=== PATIENT | female | born 1995 | race Caucasian/White ===

== ENCOUNTER 2016-10-15 01:02 | Emergency (ER) | payer BC ==
--- NOTE | 2016-10-15 02:46 | ED ---
Nagi Baldwin Rebecca, scribed for Dakota Du MD on 10/15/16 at 0220 . Abdominal Pain/Female - HPI Summary HPI Summary: Pt is a 20 y/o F who presents to ED c/o R flank pain. Pain began 3 days ago, worsening yesterday throughout the day. Pt then began drinking more water which did not change sx. Pain was initially mild and is currently moderate, ranked 7/ 10. Sx aggravated and alleviated by nothing. Additionally c/o nausea and dizziness beginning at 2230. Denies fever, dysuria and vomiting. LNMP last week. Prior "minimal kidney aching" before but not as severely as current sx. - History of Current Complaint Chief Complaint: EDFlankPain Stated Complaint: LOWER BACK PAIN Time Seen by Provider: 10/15/16 02:12 Hx Obtained From: Patient Onset/Duration: Gradual Onset, Lasting Days - 3 days, Still Present, Worse Since - yesterday Severity Initially: Mild Severity Currently: Moderate Pain Intensity: 7 Pain Scale Used: 0-10 Numeric Location: Flank - R Aggravating Factor(s): Nothing Alleviating Factor(s): Nothing Associated Signs and Symptoms: Positive: Dizzy, Nausea. Negative: Fever, Urinary Symptoms, Vomiting Allergies/Adverse Reactions: Allergies Allergy/AdvReac Type Severity Reaction Status Date / Time No Known Allergies Allergy Verified 10/15/16 01:06 PMH/Surg Hx/FS Hx/Imm Hx Endocrine/Hematology History: Denies: Hx Diabetes Cardiovascular History: Denies: Hx Hypertension Infectious Disease History: No Infectious Disease History: Denies: Traveled Outside the [place] in Last 30 Days - Family History Known Family History: Positive: Hypertension - grandmother - Social History Alcohol Use: Occasionally Substance Use Type: Reports: None Smoking Status (MU): Never Smoked Tobacco Review of Systems Negative: Fever Positive: Abdominal Pain - R flank pain, Nausea. Negative: Vomiting Negative: dysuria Neurological: Other - Dizziness All Other Systems Reviewed And Are Negative: Yes Physical Exam Triage Information Reviewed: Yes Vital Signs On Initial Exam: Initial Vitals Temp Pulse Resp BP Pulse Ox 97.4 F 113 20 141/93 99 10/15/16 01:07 10/15/16 01:07 10/15/16 01:07 10/15/16 01:07 10/15/16 01:07 Vital Signs Reviewed: Yes Appearance: Positive: Well-Appearing, No Pain Distress Skin: Positive: Warm Head/Face: Positive: Normal Head/Face Inspection Eyes: Positive: RENETTA ENT: Positive: Hearing grossly normal Neck: Positive: Supple Respiratory/Lung Sounds: Positive: Clear to Auscultation, Breath Sounds Present Cardiovascular: Positive: RRR Abdomen Description: Positive: Nontender, Soft. Negative: CVA Tenderness (R), CVA Tenderness (L) Bowel Sounds: Positive: Present Musculoskeletal: Positive: Strength/ROM Intact Neurological: Positive: Alert, Oriented to Person Place, Time Psychiatric: Positive: Affect/Mood Appropriate - [place] Coma Scale Coma Scale Total: 15 Diagnostics - Vital Signs Vital Signs Temp Pulse Resp BP Pulse Ox 10/15/16 01:07 97.4 F 113 20 141/93 99 - Laboratory Result Diagrams: 10/15/16 02:36 10/15/16 02:36 Lab Statement: Any lab studies that have been ordered have been reviewed, and results considered in the medical decision making process. Re-Evaluation - Re-Evaluation First Eval Change: Improved Abdominal Pain Fem Course/Dx - Course Course Of Treatment: Pt is a 20 y/o F who presents to ED c/o R flank pain. Pain began 3 days ago, worsening yesterday throughout the day. Pt then began drinking more water which did not change sx. Pain was initially mild and is currently moderate, ranked 7/10. Sx aggravated and alleviated by nothing. Additionally c/o nausea and dizziness beginning at 2230. Denies fever, dysuria and vomiting. LNMP last week. Prior "minimal kidney aching" before but not as severely as current sx. UA reveals urine color: straw, appearance: clear, specific gravity: 1.009, blood: 1+, leukocyte esterase: 1+, WBC: 2+, RBC: trace and negative for bacteria, glucose, protein, ketones and nitrate. Pt will be D/ C to home with Dx of UTI with Rx for Pyridium and Bactrim and a follow up with her PCP. She understands and agrees. Elevated BP noted and advised to f/u with PCP. - Diagnoses Provider Diagnoses: UTI (urinary tract infection) Discharge - Discharge Plan Condition: Stable Disposition: HOME Prescriptions: Phenazopyridine 200 mg (NF) [Pyridium 200 MG tab *] 200 mg PO TID #5 tab Sulfamethox/Trimethoprim DS* [Bactrim DS 800/160 TAB*] 1 tab PO BID #14 tab Patient Education Materials: Urinary Tract Infection in Women (ED) [facility] The documentation as recorded by the Nagi holliday Rebecca accurately reflects the service I personally performed and the decisions made by me, Dakota Du MD.
[2016-10-15 02:47] LABS: Hematocrit 41 % (35-47); Mean Corpuscular HGB Conc 34 g/dl (31-36); Mean Corpuscular Hemoglobin 28 pg (27-31); Mean Corpuscular Volume 83 fL (80-97); Mean Platelet Volume 8 um3 (7.4-10.4); Red Blood Count 4.95 10^6/ul (4.0-5.4); Red Cell Distribution Width 13 % (10.5-15)
[2016-10-15 02:54] LABS: Urine Bacteria Absent (Absent); Urine Bilirubin Negative (Negative); Urine Glucose Negative (Negative); Urine Nitrite Negative (Negative)
[2016-10-15 03:02] LABS: Anion Gap 4 mmol/L (2-11); BUN/Creatinine Ratio 15.3 (8-20); Blood Urea Nitrogen 11 mg/dL (6-24); CO2 Carbon Dioxide 29 mmol/L (22-32); Calcium 9.6 mg/dL (8.6-10.3); Chloride 104 mmol/L (101-111); EGFR African American 134.2 (>60); EGFR Non-African American 104.3 (>60); Glucose 111 mg/dL (70-100); Potassium 3.6 mmol/L (3.5-5.0); Sodium 137 mmol/L (133-145)
[2016-10-15] MEDS ORDERED: Phenazopyridine TAB* 100 MG PO ONE (03:04)
[2016-10-15] MEDS ORDERED: Sulfamethox/Trimethoprim DS 800/160* TAB PO ONE (03:04)
[2016-10-15 03:57] VITALS: BP 117/76
--- NOTE | 2016-10-17 10:06 | PN ---
Progress Note - Progress Note Date of Service: 10/17/16 Note: Patient urine culture grew E coli 50-75,000. patient placed on bactrim which final culture shows is sensitive to. no further action needed.
== END 2016-10-15 03:56 | disposition home or self-care (01) ==
LOC: ED 01:02
DX: N39.0 Urinary tract infection, site not specified (principal); R42 Dizziness and giddiness; R10.84 Generalized abdominal pain; R11.0 Nausea
CPT/HCPCS: 36415; 80048; 81003; 81015; 84702; 85025; 87077; 87086; 87186; 99282; A9270-GY